=== PATIENT | female | born 1945 | race Caucasian/White ===

== ENCOUNTER 2018-09-14 08:13 | Inpatient (IN) | payer OTHER, MEDICAID ==
[~2018-09-14] VITALS: Ht 154.9 cm; Wt 72.8 kg
[~2018-09-14 08:13] MED LIST: AMO500 PO; BIA500 PO; COZ50 PO; ECO81; FENOFIBRATE43 MG PO; GLU5 PO; GLU850 PO; HYD25 PO; IND20 PO; MOTRIN800 MG PO; PRI20 PO; TRA50 PO; VESICARE5 M1 PO; ZETIA PO; ZOC20 PO
[2018-09-14 08:35] VITALS: Ht 154.9 cm; Wt 72.8 kg
[2018-09-14 09:48] LABS: microscopic required? NO
[2018-09-14 10:00] LABS: urine erythrocyte NEGATIVE (NEGATIVE)
[2018-09-14 10:10] LABS: CALCIUM 8.9 mg/dL (8.5-10.1); CARBON DIOXIDE 26.4 mmol/L (21-32); CHLORIDE SERUM 103 mmol/L (98-107); CREATININE SERUM 0.7 mg/dL (0.6-1.0); GLUCOSE SERUM 119 mg/dL (74-106); POTASSIUM SERUM 3.7 mmol/L (3.5-5.1); SODIUM SERUM 141 mmol/L (136-145)
[2018-09-14 10:14] LABS: ALBUMIN 3.5 g/dL (3.4-5.0); ALKALINE PHOSPHATASE 148 U/L (46-116); ALT/SGPT 39 U/L (14-59); AST/SGOT 27 U/L (15-37); BILIRUBIN TOTAL 0.45 mg/dL (0.20-1.00); CHOLESTEROL 162 mg/dL (<200); CHOLESTEROL/HDL RATIO 4.4; HDL CHOLESTEROL 37 mg/dL (40-60); LIPASE 96 IU/L (73-393); TOTAL PROTEIN, SERUM 7.9 g/dL (6.4-8.2); TRIGLYCERIDES 102 mg/dL (<150)
[2018-09-14 10:21] LABS: PLATELET COUNT 133 x10^3mcL (130-400); RED CELL DISTRIBUTION WIDTH 13.7 % (11.5-14.5)
[2018-09-14 10:28] LABS: FREE T4 1.46 ng/dL (0.76-1.46); FREE THYROXINE INDEX 4.7 ug/dL (1.4-4.5); T4(THYROXINE) 13.3 ug/dL (4.7-13.3)
[2018-09-14 10:29] LABS: T3 TOTAL 1.34 ng/mL
[2018-09-14] MEDS ORDERED: METFORMIN HCL850 MG PO (12:57)
[2018-09-14] MEDS ORDERED: GLUCOTROL10 MG PO (12:58)
[2018-09-14] MEDS ORDERED: GLUCOSAMINE1000 MG (12:59)
[2018-09-14] MEDS ORDERED: LOVAZA1 G1 PO (12:59)
[2018-09-14] MEDS ORDERED: CALCIUM500 M1 PO (12:59)
[2018-09-14 15:45] VITALS: BP 136/49
[2018-09-14 21:37] VITALS: BP 110/58
[2018-09-15 05:38] VITALS: BP 134/54
[2018-09-15 13:54] VITALS: BP 148/53
[2018-09-15 17:02] VITALS: BP 135/42
[2018-09-15 21:17] VITALS: BP 132/49
[2018-09-16 05:43] VITALS: BP 127/57
[2018-09-16 07:31] LABS: CALCIUM 8.8 mg/dL (8.5-10.1); CARBON DIOXIDE 28.4 mmol/L (21-32); CHLORIDE SERUM 103 mmol/L (98-107); CREATININE SERUM 0.7 mg/dL (0.6-1.0); GLUCOSE SERUM 190 mg/dL (74-106); POTASSIUM SERUM 4.2 mmol/L (3.5-5.1); SODIUM SERUM 140 mmol/L (136-145)
[2018-09-16 08:00] VITALS: BP 122/75
[2018-09-16 08:40] LABS: BASOPHIL % 0.8 % (0-2); PLATELET COUNT 158 x10^3mcL (130-400); RED CELL DISTRIBUTION WIDTH 14.1 % (11.5-14.5)
[2018-09-16 09:45] VITALS: BP 115/45
[2018-09-16] MEDS ORDERED: LEVOFLOXACIN750 M1 PO (11:23)
[2018-09-16] MEDS ORDERED: FLA500 PO (11:24)
[2018-09-16 13:04] VITALS: BP 115/45
== END 2018-09-16 13:23 | disposition home or self-care (01) | DRG 391 ==
LOC: ED 08:13 → MU 12:16
PROVIDERS: Specialist; ADMIT Internal Medicine
DX: K57.32 Diverticulitis of large intestine without perforation or abscess without bleeding (principal); K65.9 Peritonitis, unspecified; K52.9 Noninfective gastroenteritis and colitis, unspecified; K21.9 Gastro-esophageal reflux disease without esophagitis; E11.40 Type 2 diabetes mellitus with diabetic neuropathy, unspecified; I10 Essential (primary) hypertension; E78.5 Hyperlipidemia, unspecified; E66.01 Morbid (severe) obesity due to excess calories; Z79.84 Long term (current) use of oral hypoglycemic drugs
CPT/HCPCS: 82962; 83880; 84439; C9113; J1650; J1885; J1956; J3490; J7030; Q0092